=== PATIENT | female | born 1990 | race Caucasian/White ===

== ENCOUNTER 2016-10-09 02:00 | Inpatient (IN) ==
[2016-10-09] MEDS ORDERED: MEPERIDINE 50 MG/1 ML VIAL IV PRN (02:47)
[2016-10-09] MEDS ORDERED: ACETAMINOPHEN 325 MG TABLET PO PRN (02:47)
[2016-10-09] MEDS ORDERED: ONDANSETRON 4 MG/2 ML VIAL IV PRN (02:47)
[2016-10-09] MEDS ORDERED: FAMOTIDINE 20 MG/2 ML VIAL IV ONE (03:02)
[2016-10-09] MEDS ORDERED: CITRIC ACID/SODIUM CITRATE 30 ML UDCUP PO ONE (03:02)
[2016-10-09] MEDS ORDERED: ePHEDrine 50 MG/ML AMP IV PRN (03:02)
[2016-10-09] MEDS ORDERED: fentaNYL 2 MCG/ROPIV 0.2% EPID 150 ML EPIDURAL SCH (03:02)
[2016-10-09] MEDS: LACTATED RINGERS 1,000 ML IV SCH ×2 (03:10→03:27)
[2016-10-09 03:37] LABS: Basophils % 0.2 % (0.0-0.8); Eosinophils # 0.2 10*3/uL (0.0-0.87); Hematocrit 36.4 VOL% (35.7-47.0); Hemoglobin 12.9 GM/DL (12.0-16.0); Immature Granulocytes % 0.7 %; Immature Granulocytes Absolute 0.11 #; Lymphocytes # 2.8 10*3/uL (1.4-4.0); Lymphocytes % 16.9 % (21.3-54.2); Mean Corpuscular HGB Conc 35.4 GM/DL (32-36); Mean Corpuscular Hemoglobin 32 PG (27-34); Mean Corpuscular Volume 88.8 FL (87-102); Mean Platelet Volume 10.8 FL (9.6-12.0); Monocytes # 1.1 10*3/uL (0.11-0.8); Monocytes % 6.4 % (1.7-12.7); Neutrophils # 12.5 10*3/uL (1.4-7.4); Neutrophils % 74.8 % (38.7-73.9); Platelet Count 241 T/CUMM (130-400); Red Cell Distribution Width 12.5 % (9.3-17.3); White Blood Count 16.7 T/CUMM (4-12)
[2016-10-09] MEDS ORDERED: OXYTOCIN/LR 20 UNIT/1,000 ML BAG IV SCH (07:00)
--- NOTE | 2016-10-09 09:42 | OB/GYN History & Physical ---
History of Present Illness Chief complaint: labor History of present illness: Ms. Archibald is a 26 year old female who presented at ~0230 with complaints of labor. Found to be 4 cm on admission. Pt has now progressed to complete. course uncomplicated. H/o T&A. Home Medications Medication Instructions Recorded Confirmed Type Multivitamin () [ 1 tablet PO DAILY MDD one tab 10/08/16 History Vitamin] Folic Acid Tab 1 mg PO DAILY MDD 1 mg 10/09/16 10/09/16 History Allergies Allergy/AdvReac Type Severity Reaction Status Date / Time Sulfa (Sulfonamide Allergy Mild HIVES Verified 10/08/16 19:13 Antibiotics) Medical,Surgical,& Family Hx - Medical History Reproductive: No history of: Ectopic , Complication - Surgical History HEENT Surgeries: Surgical HX of: Tonsilectomy & Adenoidectomy Reproductive Surgeries: Patient denies;: Section - Family History Family History: Reports;: Family Cancer (mgf- melanoma), Family Diabetes (mgf, pgm), Family Heart Disease (dad), Family Hypertension (mom, dad) Denies;: Family Anesthesia Reaction, Family Hematology, Family Psychiatric Problems, Family Stroke, Additional Family History - Social History Smoking Status: Former smoker Frequency of Alcohol Use: None 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
[2016-10-09] MEDS ORDERED: IBUPROFEN 800 MG TABLET PO ONE (10:44)
[2016-10-09 10:52] LABS: Cord Venous Blood HCO3 21.3 MMOL/L; Cord Venous Blood PCO2 55.3 MMHG; Cord Venous Blood PO2 11.9 MMHG
[2016-10-09 10:55] LABS: Cord Arterial Blood HCO3 20.7 MMOL/L
--- NOTE | 2016-10-09 10:59 | Event Note ---
DELIVERY NOTE VAE of female in the LEONARD position with moderately tight nuchal cord. Pt complete and pushed on her own for ~ 20 minutes. Vaccum applied at +2 station secondary to FHTs being down. Delivered with one push with the vaccum applied. Vigorous infant delivered. Spontaneous delivery of intact placenta. Repair of midline vaginal tear with 3.0 vicryl suture. EBL 400 cc. 6 lbs 3 oz. APGARS 8/9. NICU present for delivery. Mom and baby doing well.
[2016-10-09] MEDS ORDERED: OXYTOCIN/LR 20 UNIT/1,000 ML BAG IV ONE ×2 (12:45→14:23)
[2016-10-09] MEDS ORDERED: MEASLES/MUMPS/RUBELLA VACCINE 0.5 ML VIAL SUBCUT ONE (14:23)
[2016-10-09] MEDS ORDERED: LANOLIN 50% CREAM 0.3 OZ TUBE TOP PRN (14:23)
[2016-10-09] MEDS ORDERED: RHO(D) IMMUNE GLOBULIN 300 MCG SYRINGE IM ONE (14:23)
[2016-10-09] MEDS ORDERED: DIPH/TET/ACEL PERT BOOSTER VACCINE 0.5 ML VIAL IM ONE (14:23)
[2016-10-09] MEDS ORDERED: BISACODYL 10 MG SUPP RECTAL PRN (14:23)
[2016-10-09] MEDS ORDERED: oxyCODONE/ACETAMINOPHEN 5-325 MG TABLET PO PRN (14:23)
[2016-10-09] MEDS ORDERED: BENZOCAINE 20%/MENTHOL 0.5% SPRAY 56 GM CAN TOP PRN (14:23)
[2016-10-09] MEDS ORDERED: HYDROCORTISONE 2.5% RECTAL CREAM 30 GM TUBE TOP PRN (14:23)
[2016-10-09] MEDS ORDERED: WITCH HAZEL PADS 100/JAR TOP PRN (14:23)
[2016-10-09] MEDS: IBUPROFEN 800 MG TABLET PO PRN (16:52)
[2016-10-09] MEDS: DOCUSATE SODIUM 100 MG CAPSULE PO SCH (20:55)
[2016-10-10 06:36] LABS: Basophils # 0.1 10*3/uL (0.0-0.2); Basophils % 0.4 % (0.0-0.8); Eosinophils # 0.3 10*3/uL (0.0-0.87); Eosinophils % 1.7 % (0.00-10.9); Hematocrit 27.9 VOL% (35.7-47.0); Hemoglobin 9.6 GM/DL (12.0-16.0); Immature Granulocytes Absolute 0.16 #; Lymphocytes # 3.3 10*3/uL (1.4-4.0); Lymphocytes % 19.7 % (21.3-54.2); Mean Corpuscular HGB Conc 34.4 GM/DL (32-36); Mean Corpuscular Hemoglobin 31 PG (27-34); Mean Corpuscular Volume 91.2 FL (87-102); Mean Platelet Volume 11.1 FL (9.6-12.0); Monocytes # 1.3 10*3/uL (0.11-0.8); Monocytes % 7.9 % (1.7-12.7); Neutrophils # 11.6 10*3/uL (1.4-7.4); Neutrophils % 69.3 % (38.7-73.9); Platelet Count 170 T/CUMM (130-400); Red Blood Count 3.06 MC/CUMM (3.8-5.5); White Blood Count 16.7 T/CUMM (4-12)
[2016-10-10] MEDS: DOCUSATE SODIUM 100 MG CAPSULE PO SCH ×2 (08:22→21:31)
[2016-10-10] MEDS: oxyCODONE/ACETAMINOPHEN 5-325 MG TABLET PO PRN (14:19)
[2016-10-10] MEDS: IBUPROFEN 800 MG TABLET PO PRN (14:20)
--- NOTE | 2016-10-10 16:08 | Anesthesia Post-Op ---
Anesthesia Post OP - Post Ansesthetic Evaluation Patient seen in post op: Yes Resp: within normal limits CV: within normal limits Mental: within normal limits Temp: within normal limits [id number]: within normal limits Nausea and Vomiting: within normal limits Pain: within normal limits
--- NOTE | 2016-10-10 18:15 | OB/GYN Progress Note ---
Assessment and Plan (1) Vaginal delivery Status: Acute Assessment and plan: Initiate routine orders. 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 Bonding well with . 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 - Constitutional Vitals: Vital Signs Temp Pulse Resp BP Pulse Ox 10/10/16 16:00 98.1 F 87 18 146/83 99 10/10/16 11:26 98.2 F 88 18 150/77 96 10/10/16 08:00 97.5 F L 79 18 129/77 100 10/10/16 06:54 18 10/10/16 06:00 18 10/10/16 04:00 97.1 F L 77 20 148/73 98 10/10/16 03:00 18 10/10/16 02:00 18 10/10/16 01:00 18 10/10/16 00:00 97.6 F 80 18 138/75 98 10/09/16 20:00 97.6 F 95 H 20 138/93 98 General appearance: no acute distress - Antepartum / Post Post Exam Breast: bilateral: normal Abdomen obstetrics: Present: bowel sounds normal Vagina: Present: normal moisture, discharge (Light lochia rubra) Uterus exam: Present: enlarged (Fundus firm and midline) - Head Head exam: Present: normal inspection - Respiratory Respiratory exam: Present: clear to auscultation bilaterally - Cardiovascular Cardiovascular exam: Present: regular rate and rhythm - GI/Abdominal GI/Abdominal exam: Present: normal bowel sounds, soft - Extremities Exam Extremities exam: Present: normal inspection - Back Exam Back exam: Present: normal inspection - Neurological Exam Neurological exam: Present: alert, oriented X3 - Psychiatric Psychiatric exam: Present: normal affect, normal mood - Skin Skin exam: Present: normal color, warm Results - Labs CBC & BMP: 10/10/16 05:31
[2016-10-10] MEDS: FERROUS SULFATE 325 MG TABLET PO SCH (21:31)
[2016-10-11] MEDS: oxyCODONE/ACETAMINOPHEN 5-325 MG TABLET PO PRN (00:07)
[2016-10-11] MEDS: IBUPROFEN 800 MG TABLET PO PRN (00:07)
[2016-10-11 08:11] VITALS: BP 140/77
--- NOTE | 2016-10-11 08:16 | Discharge Summary ---
Hospital Course - Hospital Course Hospital Course: Ms. Archibald is a 26-year-old presented to the labor department in active labor. She subsequently delivered a viable with no complications. She has followed a normal course and she has done well. Her bleeding is minimal with no odor. She is bonding well with her . Her vital signs and lab values are stable. Her perineum is intact with no edema. She denies any significant complaints of pain. She will be discharged home with prescriptions for pain and a follow-up appointment in our office. Contraception has been discussed with this patient and she is unsure of a method at this time. Diagnosis - Discharge Diagnosis (1) Vaginal delivery Status: Acute (2) 39 weeks gestation of Status: Acute Specialty Discharge - Follow Up or Referrals Follow up with: Sharon Woodward MD [Physician] - (Follow-up in 6 weeks) Discharge Plan - Discharge Data Disposition: Disch To Home/Self Care Condition at Discharge: Stable Discharge Diet: advance to your usual diet, regular diet Activity: resume usual activities as tolerated Hygiene: may shower Weight Bearing at Discharge: weight bear as tolerated Driving: no restrictions Contact your physician if you experience:: fever over 101, pain uncontrolled by pain medications - Discharge Medications New Acetamin/Codeine 300-30 Tab [Tylenol/Codeine #3] 2 tablet PO Q4H PRN #30 tablet PRN Reason: Pain Mild (1-3) Ferrous Sulfate Tab [Feosol Original Tab] 325 mg PO BID #60 tablet Ibuprofen Tab [Motrin Tab] 800 mg PO Q6H PRN #30 tablet PRN Reason: Pain Moderate (4-7) No Action Folic Acid Tab 1 mg PO DAILY MDD 1 mg Multivitamin () [ Vitamin] 1 tablet PO DAILY MDD one tab - Follow Up or Referral - Forms/Instructions Exam - Constitutional Vitals: Period Temp Pulse Resp BP Sys/Fox Pulse Ox Last 24 Hr 97.1 F-98.2 F 70-88 16-20 118-150/67-83 96-99 General appearance: normal weight, no acute distress - Head Head exam: Present: normal inspection - Respiratory Respiratory exam: Present: clear to auscultation bilaterally - Cardiovascular Cardiovascular exam: Present: regular rate and rhythm - GI/Abdominal GI/Abdominal exam: Present: normal bowel sounds, soft - Extremities Exam Extremities exam: Present: normal inspection - Neurological Exam Neurological exam: Present: alert, oriented X3 - Psychiatric Psychiatric exam: Present: normal affect, normal mood - Skin Skin exam: Present: normal color, warm DS: Provider Date of admission: 10/09/16 09:45 Primary care physician: . No PCP Attending physician on admission: Kae Arita MD Consults: 10/09/16 14:23 Consult to Sports Leadership Instructor [CONS] Routine Consult Sports Leadership Instructor: Breast Feeding Discharging clinician: Leonie Leal CNM Expected date of discharge: 10/11/16
[2016-10-11] MEDS: DOCUSATE SODIUM 100 MG CAPSULE PO SCH (08:39)
[2016-10-11] MEDS: FERROUS SULFATE 325 MG TABLET PO SCH (08:39)
== END 2016-10-11 11:50 | disposition home or self-care (01) | DRG 775 ==
LOC: N.LD 02:00 → N.LDOUT 02:30 → N.LD 03:22 → N.OB 14:11
PROVIDERS: ADMIT Obstetrics & Gynecology; ATTEND Obstetrics & Gynecology

== ENCOUNTER 2021-07-19 11:31 | Inpatient (IN) ==
[2021-07-19] MEDS ORDERED: NIFEdipine 10 MG CAPSULE PO ONE ×2 (13:07→13:10)
[2021-07-19 13:30] LABS: Basophils % 0.3 % (0.0-0.8); Eosinophils # 0.1 10*3/uL (0.0-0.87); Eosinophils % 0.5 % (0.00-10.9); Hematocrit 35.7 VOL% (35.7-47.0); Hemoglobin 12.3 GM/DL (12.0-16.0); Immature Granulocytes % 0.6 %; Immature Granulocytes Absolute 0.07 #; Lymphocytes # 2.8 10*3/uL (1.4-4.0); Mean Corpuscular HGB Conc 34.5 GM/DL (32-36); Mean Corpuscular Volume 90.2 FL (87-102); Mean Platelet Volume 10.9 FL (9.6-12.0); Monocytes # 0.7 10*3/uL (0.11-0.8); Monocytes % 5.9 % (1.7-12.7); Neutrophils % 70.7 % (38.7-73.9); Platelet Count 199 T/CUMM (130-400); Red Blood Count 3.96 MC/CUMM (3.8-5.5); Red Cell Distribution Width 12.4 % (9.3-17.3); White Blood Count 12.6 T/CUMM (4-12)
[2021-07-19 13:40] LABS: Bacteria,Urine Occasional /HPF (Few); Mucus,Urine Few /LPF (Occasional); RBC,Urine 1 /HPF (0-4); Squamous Epithelial Cell,Urine Few /HPF (0-10)
[2021-07-19 13:41] LABS: Glucose,Urine (UA) Negative (Negative); Ketones,Urine Negative (Negative); Nitrite,Urine Negative (Negative); Protein,Urine Negative (Negative); Urine Appearance Clear (Clear); Urine Color Yellow (Yellow); Urine pH 6.5 (4.5-8.0)
[2021-07-19 13:42] LABS: Bilirubin,Urine Negative (Negative); Blood, Urine Negative (Negative); Urine Urobilinogen 0.2 eU/dL (<2.0)
[2021-07-19 13:47] LABS: Alanine Aminotransferase 25 U/L (13-56); Albumin 2.3 G/DL (3.4-5.0); Alkaline Phosphatase 136 U/L (45-117); Aspartate Amino Transferase 17 U/L (0-37); Bilirubin,Total < 0.39 MG/DL (0.20-1.00); Blood Urea Nitrogen 9 MG/DL (7-18); Calcium 9.1 MG/DL (8.5-10.1); Carbon Dioxide 21 MMOL/L (21-32); Chloride 108 MMOL/L (98-107); Estimated Glom Filtration Rate 146 ML/MIN; Glucose 71 MG/DL (74-106); Lymphocytes 26 % (20-55); Potassium 3.8 MMOL/L (3.5-5.1); Sodium 136 MMOL/L (136-145); Total Cells Counted 100; Total Protein 6.5 G/DL (6.4-8.2); Uric Acid 5.4 MG/DL (2.6-6.0)
[2021-07-19 13:48] LABS: Anisocytosis Slight; Platelet Estimate Normal; Polychromasia Slight
[2021-07-19] MEDS ORDERED: LABETALOL 100 MG TABLET PO SCH (13:48)
[2021-07-19 13:58] LABS: INR 0.8; PT Patient Result 9.3 SECS (10.5-12.0); Partial Thromboplastin Time 32.1 SECS (23.8-32.1)
[2021-07-19 15:23] LABS: Protein/Creatinine Ratio,Urine 0.3 RATIO
[2021-07-19] MEDS ORDERED: LABETALOL 100 MG TABLET PO ONE (15:30)
[2021-07-19] MEDS ORDERED: ALUMINUM/MAGNES/SIMETH MAX STR 30 ML UDCUP PO PRN (16:12)
[2021-07-19] MEDS ORDERED: FAMOTIDINE 20 MG TABLET PO PRN (19:23)
[2021-07-20] MEDS ORDERED: miSOPROStoL 200 MCG TABLET RECTAL PRN
[2021-07-20] MEDS ORDERED: CARBOPROST TROMETHAMINE 250 MCG/ML AMP IM PRN
[2021-07-20] MEDS ORDERED: MEPERIDINE 50 MG/1 ML VIAL IV PRN ×2
[2021-07-20] MEDS ORDERED: ACETAMINOPHEN 500 MG TABLET PO PRN
[2021-07-20] MEDS ORDERED: METHYLERGONOVINE 0.2 MG/1 ML AMP IM PRN
[2021-07-20] MEDS ORDERED: BUTORPHANOL 1 MG/ML VIAL IV PRN
[2021-07-20] MEDS ORDERED: BUTORPHANOL 2 MG/ML VIAL IV PRN
[2021-07-20] MEDS ORDERED: TRANEXAMIC ACID 1,000 MG in SODIUM CHLORIDE 0.9% 100 ML IV PRN
[2021-07-20] MEDS ORDERED: LACTATED RINGERS 500 ML IV PRN
[2021-07-20] MEDS ORDERED: NIFEdipine 10 MG CAPSULE PO ONE (04:16)
[2021-07-20] MEDS ORDERED: OXYTOCIN/LR 20 UNIT/1,000 ML BAG IV SCH (04:30)
[2021-07-20] MEDS: LACTATED RINGERS 1,000 ML IV SCH ×2 (04:35→08:40)
[2021-07-20] MEDS ORDERED: PROMETHAZINE 25 MG/1 ML VIAL IM ONE (07:47)
[2021-07-20] MEDS ORDERED: ePHEDrine 50 MG/ML VIAL IV PRN (07:47)
[2021-07-20] MEDS ORDERED: diphenhydrAMINE 50 MG/1 ML VIAL IV PRN ×2 (07:47)
[2021-07-20] MEDS ORDERED: hydrOXYzine HCL 25 MG/1 ML VIAL IM PRN (07:47)
[2021-07-20] MEDS ORDERED: ONDANSETRON 4 MG/2 ML VIAL IV ONE (07:47)
[2021-07-20] MEDS ORDERED: NALOXONE 0.4 MG/ML VIAL IV PRN (07:47)
[2021-07-20] MEDS ORDERED: FAMOTIDINE 20 MG/2 ML VIAL IV ONE (07:50)
[2021-07-20] MEDS ORDERED: CITRIC ACID/SODIUM CITRATE 30 ML UDCUP PO ONE (07:50)
[2021-07-20] MEDS ORDERED: fentaNYL 2 MCG/ROPIV 0.2% EPID 100 ML EPIDURAL SCH (08:00)
[2021-07-20] MEDS ORDERED: LABETALOL 200 MG TABLET PO SCH (09:00)
[2021-07-20 09:31] LABS: Bilirubin,Urine Negative (Negative); Blood, Urine Negative (Negative); Glucose,Urine (UA) Negative (Negative); Ketones,Urine Negative (Negative); Nitrite,Urine Negative (Negative); Protein,Urine Negative (Negative); RBC,Urine 1 /HPF (0-4); Urine Appearance Clear (Clear); Urine Color Yellow (Yellow); Urine Specific Gravity 1.016 (1.001-1.035); Urine Urobilinogen 0.2 eU/dL (<2.0)
[2021-07-20] MEDS ORDERED: TRANEXAMIC ACID 1,000 MG/10 ML VIAL ONE (11:30)
[2021-07-20] MEDS ORDERED: miSOPROStoL 200 MCG TABLET ONE (11:30)
[2021-07-20] MEDS ORDERED: SODIUM CHLORIDE 0.9% 0 ML IV ONE (11:30)
[2021-07-20] MEDS ORDERED: CARBOPROST TROMETHAMINE 250 MCG/ML AMP IM ONE (11:31)
[2021-07-20] MEDS ORDERED: METHYLERGONOVINE 0.2 MG/1 ML AMP ONE (11:31)
[2021-07-20 12:22] LABS: Cord Venous Blood HCO3 22.4 MMOL/L; Cord Venous Blood PCO2 47.2 MMHG; Cord Venous Blood PO2 32.3
[2021-07-20] MEDS ORDERED: NIFEdipine 10 MG CAPSULE PO PRN (14:14)
[2021-07-20] MEDS ORDERED: ONDANSETRON 4 MG/2 ML VIAL IV PRN ×2 (15:50)
[2021-07-20] MEDS ORDERED: BISACODYL 10 MG SUPP RECTAL PRN (15:50)
[2021-07-20] MEDS ORDERED: ACETAMINOPHEN 325 MG TABLET PO PRN (15:50)
[2021-07-20] MEDS ORDERED: DIPH/TET/ACEL PERT BOOSTER VACCINE 0.5 ML VIAL IM ONE (15:50)
[2021-07-20] MEDS ORDERED: RHO(D) IMMUNE GLOBULIN 300 MCG SYRINGE IM ONE (15:50)
[2021-07-20] MEDS ORDERED: MEASLES/MUMPS/RUBELLA VACCINE 0.5 ML VIAL SUBCUT ONE (15:50)
[2021-07-20] MEDS ORDERED: oxyCODONE/ACETAMINOPHEN 5-325 MG TABLET PO PRN ×2 (15:50)
[2021-07-20] MEDS ORDERED: HYDROCORTISONE 2.5% RECTAL CREAM 30 GM TUBE TOP PRN (15:50)
[2021-07-20] MEDS ORDERED: LANOLIN 50% CREAM 0.3 OZ TUBE TOP PRN (15:50)
[2021-07-20] MEDS ORDERED: OXYTOCIN/LR 20 UNIT/1,000 ML BAG IV ONE ×2 (15:50)
[2021-07-20] MEDS ORDERED: WITCH HAZEL PADS 100/JAR TOP PRN (15:50)
[2021-07-20] MEDS ORDERED: BENZOCAINE 20%/MENTHOL 0.5% SPRAY 56 GM CAN TOP PRN (15:50)
[2021-07-20] MEDS: IBUPROFEN 800 MG TABLET PO PRN (20:13)
[2021-07-20] MEDS: DOCUSATE SODIUM 100 MG CAPSULE PO SCH (20:18)
[2021-07-21] MEDS: IBUPROFEN 800 MG TABLET PO PRN ×3 (05:04→22:08)
[2021-07-21 05:37] LABS: Basophils % 0.2 % (0.0-0.8); Eosinophils # 0.1 10*3/uL (0.0-0.87); Eosinophils % 0.6 % (0.00-10.9); Hematocrit 34.8 VOL% (35.7-47.0); Hemoglobin 11.9 GM/DL (12.0-16.0); Immature Granulocytes % 0.7 %; Immature Granulocytes Absolute 0.09 #; Lymphocytes # 2.9 10*3/uL (1.4-4.0); Lymphocytes % 21.8 % (21.3-54.2); Mean Corpuscular HGB Conc 34.2 GM/DL (32-36); Mean Corpuscular Volume 91.3 FL (87-102); Mean Platelet Volume 10.6 FL (9.6-12.0); Monocytes % 7.5 % (1.7-12.7); Neutrophils % 69.2 % (38.7-73.9); Platelet Count 212 T/CUMM (130-400); Red Blood Count 3.81 MC/CUMM (3.8-5.5); Red Cell Distribution Width 12.8 % (9.3-17.3); White Blood Count 13.4 T/CUMM (4-12)
[2021-07-21] MEDS: DOCUSATE SODIUM 100 MG CAPSULE PO SCH ×2 (09:52→22:07)
[2021-07-22] MEDS ORDERED: FUROSEMIDE 20 MG TABLET PO ONE (09:30)
[2021-07-22] MEDS: DOCUSATE SODIUM 100 MG CAPSULE PO SCH (09:41)
[2021-07-22 11:22] VITALS: BP 139/72
== END 2021-07-22 13:20 | disposition home or self-care (01) | DRG 560 ==
LOC: N.LDOUT 11:31 → N.LD 11:37 → N.OB 07-20 15:30
PROVIDERS: ADMIT Obstetrics & Gynecology; ATTEND Obstetrics & Gynecology